=== PATIENT | male | born 1980 | race Two or more races ===

== ENCOUNTER 2021-03-21 13:39 | Emergency (ER) | payer OTHER ==
[~2021-03-21] VITALS: Ht 188 cm; Wt 144.9 kg
[2021-03-21] MEDS ORDERED: KETOROLAC TROMETH 60MG/2ML VIAL IM ONE (14:30)
[2021-03-21 15:51] VITALS: BP 152/96
== END 2021-03-21 15:51 | disposition home or self-care (01) ==
LOC: ER 13:39
DX: S49.91XA Unspecified injury of right shoulder and upper arm, initial encounter (principal); Z88.1 Allergy status to other antibiotic agents; Z88.8 Allergy status to other drugs, medicaments and biological substances; W11.XXXA Fall on and from ladder, initial encounter; Y93.89 Activity, other specified; Y92.89 Other specified places as the place of occurrence of the external cause; Y99.8 Other external cause status
CPT/HCPCS: 73030; 96372; 99283; J1885